=== PATIENT | female | born 1950 | race Caucasian/White ===

== ENCOUNTER 2017-01-01 08:31 | Day surgery (SDC) | payer MEDICARE, OTHER ==
--- NOTE | 2017-01-01 09:36 | Operative Note ---
Colonoscopy ([facility]) Procedure date: 01/01/17 Date of : 48 Procedure:Colonoscopy Colonoscopy with cold snare polypectomy and hemorrhoidal band ligation Indications: Mrs. Obrien is a 66-year-old female who is here for follow-up colonoscopy. She does have prolapsing hemorrhoids and does state that Dr. Bolivar Sweeney banded these years ago. She does state that her father had colon cancer in his mid 60s. Her paternal grandfather also had colon cancer in his 60s. She does state that her maternal aunt had colon cancer. Her last colonoscopy showed a single diverticulum but was otherwise normal in 2010 performed in [facility]. The patient does have some chronic constipation and takes Linzess which helps to control. She reports no abdominal pain, weight loss, change in her bowel habits or rectal bleeding. Performing Provider: Lorena Kerr MD Referrring Provider: Heath Borrego M.D. Sedation: Fentanyl 100 mg IV/Versed 7 mg IV Procedure: Prior to the procedure, a history and physical exam was performed, and patient medications and allergies were reviewed. The risks and benefits of the procedure and the sedation options and risks were discussed with the patient. All questions were answered and informed consent was obtained. Patient identification and proposed procedure were verified by the physician and the nurse. The patient was placed in a left lateral decubitus position. Throughout the procedure, the patient's blood pressure, pulse, and oxygen saturations were monitored continuously. Findings: On digital rectal examination there was normal rectal tone. There were no external hemorrhoids. The colonoscope was introduced through the anal canal to the rectum and advanced to the cecum. The ileocecal valve and appendiceal orifice were identified. The scope was advanced a short distance into the ileum which appeared grossly normal. The scope was then withdrawn into the colon. There were 2 colon polyps identified in the cecum (12-13 mm polyp) and rectosigmoid (3 mm polyp). These ranged in size from 3 and 13 mm and were all removed via cold snare polypectomy. The remaining cecum, ascending, transverse, descending, sigmoid and rectum were grossly normal. There were no other mucosal abnormalities identified. The preparation was fair with the [place] preparation score of 6-7. Upon retroflexion within the rectum there were grade 1-2 internal hemorrhoids. The hemorrhoids were banded using 2 bands on 2 columns of hemorrhoids with excellent ligation effect. Impressions: 1. Colonic polyps 2 2. Grade 1-2 internal hemorrhoids status post band ligation 2 3. Fair to poor preparation with [place] preparation score of 6-7 Recommendations: I will follow up the polyp histology and recommend repeat surveillance/screening colonoscopy in 3-5 years based upon the biopsy/histology patient's preparation and strong family history. Complications: None EBL (ml): 0 at 0952
[2017-01-01 16:17] VITALS: BP 110/60
== END 2017-01-01 10:25 | disposition home or self-care (01) ==
LOC: SDC 08:31
PROVIDERS: Internal Medicine Gastroenterology
PROC: 0DBN8ZX Excision of Sigmoid Colon, Via Natural or Artificial Opening Endoscopic, Diagnostic (ICD-10-PCS; 2017-01-01)
PROC: 06LY4CC Occlusion of Hemorrhoidal Plexus with Extraluminal Device, Percutaneous Endoscopic Approach (ICD-10-PCS; 2017-01-01)
PROC: 0DBH8ZX Excision of Cecum, Via Natural or Artificial Opening Endoscopic, Diagnostic (ICD-10-PCS; principal; 2017-01-01 09:30)
DX: Z12.11 Encounter for screening for malignant neoplasm of colon (principal); D12.0 Benign neoplasm of cecum; D12.7 Benign neoplasm of rectosigmoid junction; K64.1 Second degree hemorrhoids; Z80.0 Family history of malignant neoplasm of digestive organs